=== PATIENT | female | born 1990 | race Two or more races ===

== ENCOUNTER 2020-03-10 08:42 | Emergency (ER) | payer OTHER ==
[2020-03-10 08:47] VITALS: TEMP 98; BMI 28.2
--- NOTE | 2020-03-10 08:52 | PDOC ---
History of Present Illness - General Chief Complaint: Edema Stated Complaint: RT FOOT INJURY (SWOLLEN) - History of Present Illness Initial Comments: The pt is a 29F w/ no reported PMH who presents for evaluation of 10 days of R foot pain with evolution of swelling. The pt reports that she walks approximately 8 miles at work each day which is new over the last several weeks as she was put on a new route. The pain sharp, intermittent, worse with walking and touch, and alleviated by rest and ibuprofen. She denies changes in sensation. Denies injury, surgery, travel, hx of DVT, OCPs, hx of COVID 03/10/20 09:08 Past History - Medical History Allergies/Adverse Reactions: Allergies Allergy/AdvReac Type Severity Reaction Status Date / Time No Known Allergies Allergy Verified 03/10/20 08:47 Home Medications: Ambulatory Orders NK [No Known Home Medication] 03/10/20 COPD: No - Reproductive History Is Patient Now?: No - Psycho-Social/Smoking History Smoking History: Never smoked - Substance Abuse Hx (Audit-C & DAST Scrn) How often the patient has a drink containing alcohol: Never Score: In Men: 4 or > Positive; In Women: 3 or > Positive: 0 Screen Result (Pos requires Nsg. Audit-10AR): Negative Review of Systems - Review of Systems Able to Perform ROS?: Yes Comments:: GENERAL/CONSTITUTIONAL: No fever or chills. No weakness HEAD, EYES, EARS, NOSE AND THROAT: No change in vision. No change in hearing. No sore throat CARDIOVASCULAR: No chest pain or shortness of breath RESPIRATORY: Denies cough, hemoptysis GASTROINTESTINAL: No nausea, vomiting, diarrhea or constipation GENITOURINARY: No dysuria, frequency, or change in urination MUSCULOSKELETAL: per HPI SKIN: No rash NEUROLOGIC: No headache, vertigo, loss of consciousness, or change in strength/sensation ENDOCRINE: No increased thirst. No abnormal weight change HEMATOLOGIC/LYMPHATIC: No anemia, easy bleeding, or history of blood clots ALLERGIC/IMMUNOLOGIC: No hives or skin allergy 03/10/20 08:51 Is the patient limited [place]se proficient: No *Physical Exam - Vital Signs Last Vital Signs Temp Pulse Resp BP Pulse Ox 98 F 82 18 124/92 99 03/10/20 08:44 03/10/20 08:44 03/10/20 08:44 03/10/20 08:44 03/10/20 08:44 - Physical Exam GENERAL: Awake, alert, and oriented to person/place/time, in no acute distress HEAD: No signs of trauma, normocephalic, atraumatic EYES: PERRLA, EOMI, sclera anicteric, conjunctiva clear ENT: Hearing grossly normal, nares patent, oropharynx clear without exudates. Moist mucosa LUNGS: No distress, speaks in full sentences, clear to auscultation bilaterally HEART: Regular rate and rhythm, normal S1 and S2, no murmurs appreciated, peripheral pulses normal and equal bilaterally ABDOMEN: Soft, nontender, normoactive bowel sounds. No guarding, no rebound EXTREMITIES: R foot with metatarsal TTP, pain with dorsiflexion of digits and TTP on plantar surface, no erythema or warmth; remainder of extremities w/ FROM and strength 5/5; pt ambulating in ED NEUROLOGICAL: Cranial nerves II through XII grossly intact. Normal speech, normal gait, no focal sensorimotor deficits SKIN: Warm, Dry 03/10/20 08:51 Medical Decision Making - Medical Decision Making The pt is a 29F w/ no reported PMH who presents for evaluation of 10 days of R foot pain with evolution of swelling. Ddx: plantar fasciitis, strain, sprain, not likely fx/dislocation ED Course Tylenol and Ibuprofen for pain R foot/ankle XR w/o acute pathology Pt ambulating in ED Plan for D/C w/ Ortho f/u Work note given Discharge instructions including stretching instructions given Patient in agreement and verbalized understanding Dispo: Home 03/10/20 10:07 Discharge - Discharge Information Problems reviewed: Yes Clinical Impression/Diagnosis: Plantar fasciitis Condition: Stable Disposition: HOME - Admission No - Follow up/Referral Referrals: Saurav Kingston MD [Primary Care Provider] - Jarett Maharaj DO [Staff Physician] - Yazan Monzon MD [Staff Physician] - Dhiraj Henao MD [Staff Physician] - Niko Huggins [Non Staff, Medical] - - Patient Discharge Instructions Patient Printed Discharge Instructions: DI for Plantar Fasciitis Additional Instructions: You were seen in the Emergency Department for evaluation of foot pain and swelling. Your x-ray was negative for fracture. You likely have plantar fasciitis. Review the handout provided at discharge. You may use over the counter medications as needed for pain at home. 650-1000mg acetaminophen (Tylenol) or 600mg ibuprofen (Motrin or Advil) can be used every 6-8 hours. If needed for continued pain, these medications may be alternated every 3-4 hours. For example, if you take ibuprofen at 9am, you may take acetaminophen at noon, ibuprofen at 3pm, etc. - You may use over the counter medications as needed for pain at home. 650- 1000mg acetaminophen (Tylenol) or 600mg ibuprofen (Motrin or Advil) can be used every 6-8 hours. If needed for continued pain, these medications may be alternated every 3-4 hours. For example, if you take ibuprofen at 9am, you may take acetaminophen at noon, ibuprofen at 3pm, etc. - It is strongly recommended that you take ibuprofen with food to help prevent stomach irritation. If you are taking it for more than a day or two, you may consider taking an acid medication such as Pepcid, available over the counter, to protect your stomach. This should be taken first thing in the morning 30-60 minutes before any food or medications. - Do not stop moving around. As much as you can tolerate, continue to do light exercise and stretching exercises. Increase your activity level as much as you can tolerate daily. Wear sturdy shoes Sneakers with a lot of cushion and good arch and heel support are best. Shoes with rigid soles can also help. Adding padded or gel heel inserts to your shoes might help, too. Wear splints at night Some people feel better if they wear a splint while they sleep that keeps their foot straight. These splints are sold in drugstores and medical supply stores. Return to the Emergency Department if you develop fevers, chest pain, trouble breathing, worsening symptoms, or any new/concerning symptoms. - Post Discharge Activity Work/Back to School Note: Back to Work
[2020-03-10] MEDS ORDERED: ACETAMINOPHEN 325 MG TABLET (FP) PO ONE (09:07)
[2020-03-10] MEDS ORDERED: IBUPROFEN 600 MG TABLET (FP) PO ONE ×2 (09:08→09:25)
[2020-03-10] MEDS ORDERED: ACETAMINOPHEN 325 MG TABLET (FP) ONE (09:24)
--- NOTE | 2020-03-10 10:36 | PDOC ---
Documentation entered by Denise Olson SCRIBE, acting as scribe for Joaquin Lew MD. Joaquin Lew MD: This documentation has been prepared by the [facility] Ana, SCRIBE, under my direction and personally reviewed by me in its entirety. I confirm that the documentation accurately reflects all work, treatment, procedures, and medical decision making performed by me. Attending Attestation - Resident Resident Name: David Barrett - ED Attending Attestation I have performed the following: I have examined & evaluated the patient, The case was reviewed & discussed with the resident, I agree w/resident's findings & plan, Exceptions are as noted - HPI HPI: 03/10/20 09:47 Agree with resident hpi - Physicial Exam PE: 03/10/20 10:25 Agree with resident exam - Medical Decision Making 03/10/20 10:26 29yo F presents to the ED with atraumatic foot pain made worse with ambulation Vitals wnl Exam with pain over arch, worse with dorsiflexion of foot consistent with planar fascitis Foot is NVI with 2+ DP and TP pulses equal b/l XR negative for fracture Pt given exercises for plantar fascitis, work note for rest Pt well appearing, clinically stable for DC home I discussed the physical exam findings, ancillary test results and final diagnoses with the patient. I answered all of the patient's questions. The patient was satisfied with the care received and felt comfortable with the discharge plan and treatment plan. The patient will call their primary care physician within 24 hours to arrange follow-up and will return to the Emergency Department with any new, persistent or worsening symptoms. Discharge - Discharge Information Problems reviewed: Yes Clinical Impression/Diagnosis: Plantar fasciitis Condition: Stable Disposition: HOME - Follow up/Referral Referrals: Dhiraj Henao MD [Staff Physician] - Niko Huggins [Non Staff, Medical] - Yazan Monzon MD [Staff Physician] - Saurav Kingston MD [Primary Care Provider] - Jarett Maharaj DO [Staff Physician] - - Patient Discharge Instructions Patient Printed Discharge Instructions: DI for Plantar Fasciitis Additional Instructions: You were seen in the Emergency Department for evaluation of foot pain and swelling. Your x-ray was negative for fracture. You likely have plantar fasciitis. Review the handout provided at discharge. You may use over the counter medications as needed for pain at home. 650-1000mg acetaminophen (Tylenol) or 600mg ibuprofen (Motrin or Advil) can be used every 6-8 hours. If needed for continued pain, these medications may be alternated every 3-4 hours. For example, if you take ibuprofen at 9am, you may take acetaminophen at noon, ibuprofen at 3pm, etc. - You may use over the counter medications as needed for pain at home. 650- 1000mg acetaminophen (Tylenol) or 600mg ibuprofen (Motrin or Advil) can be used every 6-8 hours. If needed for continued pain, these medications may be alternat ed every 3-4 hours. For example, if you take ibuprofen at 9am, you may take acetaminophen at noon, ibuprofen at 3pm, etc. - It is strongly recommended that you take ibuprofen with food to help prevent stomach irritation. If you are taking it for more than a day or two, you may consider taking an acid medication such as Pepcid, available over the counter, to protect your stomach. This should be taken first thing in the morning 30-60 minutes before any food or medications. - Do not stop moving around. As much as you can tolerate, continue to do light exercise and stretching exercises. Increase your activity level as much as you can tolerate daily. Wear sturdy shoes Sneakers with a lot of cushion and good arch and heel support are best. Shoes with rigid soles can also help. Adding padded or gel heel inserts to your shoes might help, too. Wear splints at night Some people feel better if they wear a splint while they sleep that keeps their foot straight. These splints are sold in [employer] and medical supply stores. Return to the Emergency Department if you develop fevers, chest pain, trouble breathing, worsening symptoms, or any new/concerning symptoms. - Post Discharge Activity Work/Back to School Note: Back to Work
[2020-03-10 10:40] VITALS: BP 128/88; PULSE 80
== END 2020-03-10 10:40 | disposition home or self-care (01) ==
LOC: JER 08:42
DX: M72.2 Plantar fascial fibromatosis (principal)
CPT/HCPCS: 73610-TC-RT-FY; 73630-TC-RT-FY; 99283-25